=== PATIENT | male | born 1970 | race Caucasian/White ===

== ENCOUNTER 2021-02-19 19:11 | Emergency (ER) | payer BC ==
[~2021-02-19] VITALS: Ht 180.3 cm; Wt 90.9 kg
[2021-02-19 19:20] VITALS: BP 158/116
[2021-02-19 20:30] LABS: URINE APPEARANCE CLEAR; URINE COLOR YELLOW; URINE GLUCOSE NEGATIVE (NEGATIVE); URINE KETONE NEGATIVE (NEGATIVE); URINE PROTEIN(semi-quant) TRACE mg/dL (NEGATIVE)
[2021-02-19 20:31] LABS: URINE BILIRUBIN NEGATIVE (NEGATIVE); URINE BLOOD 250 ery/uL (NEGATIVE); URINE LEUKOCYTE ESTERASE NEGATIVE (NEGATIVE); URINE MUCUS PRESENT (NOT PRESENT); URINE NITRATE NEGATIVE (NEGATIVE); URINE UROBILINOGEN NORMAL (NORMAL)
[2021-02-19] MEDS ORDERED: VIBRAMYCIN HYC100 MG PO (21:22)
[2021-02-20 17:07] LABS: SYPHILIS AB SCREEN w REFLEX Positive (Negative)
[2021-02-20 20:47] LABS: RPR (VDRL) Reactive (Non-reacti)
[2021-02-20 20:48] LABS: RPR QUANTITATIVE 1:16 (())
== END 2021-02-19 21:24 | disposition home or self-care (01) ==
LOC: ED 19:11
PROVIDERS: Nurse Practitioner Family
DX: A51.0 Primary genital syphilis (principal); F17.210 Nicotine dependence, cigarettes, uncomplicated; Z20.2 Contact with and (suspected) exposure to infections with a predominantly sexual mode of transmission
CPT/HCPCS: J0696